=== PATIENT | female | born 1990 | race Caucasian/White ===

== ENCOUNTER 2023-12-08 11:09 | Emergency (ER) | payer MEDICAID ==
[~2023-12-08] VITALS: Ht 152.4 cm; Wt 49.0 kg
[2023-12-08 13:31] VITALS: BP 131/88; PULSE 112; RESP 18; TEMP 98.8; O2SAT 97
[2023-12-08] MEDS ORDERED: CEPH500C PO (14:22)
== END 2023-12-08 14:22 | disposition home or self-care (01) ==
LOC: ER 11:09
DX: O91.211 Nonpurulent mastitis associated with pregnancy, first trimester (principal); Z3A.01 Less than 8 weeks gestation of pregnancy; Z88.0 Allergy status to penicillin; Z79.899 Other long term (current) drug therapy
CPT/HCPCS: 76642